=== PATIENT | male | born 1960 | race Caucasian/White ===

== ENCOUNTER 2023-01-14 11:55 | Inpatient (IN) | payer MEDICAID ==
[2023-01-14] VITALS (17 sets, daily range): BP systolic 105–167; BP diastolic 55–83
[~2023-01-14] VITALS: Ht 188 cm; Wt 91.9 kg
--- NOTE | 2023-01-14 12:09 | NUR ---
1155 BROUGHT IN TO ROOM 5 PER EMS WITH CARDIAC ARREST AT URGENT [facility]ARE AROUND 1110 TODAY. PATIENT WAS TREATED ON SCENE WITH 2 SHOCKS, 2 DOSES EPI, AND 300 MG AMIODARONE. CPR WAS INITIATED UNTIL PATIENT RETURNED TO [facility]. IGEL INSERTED AND BVM TO ER. 1202 ATROPINE 1 MG GIVEN IV. 1206 ETOMIDATE 20 MG GIVEN IV. 1207 INTUBATION WITH #8 ET TUBE. PLACED ON VENT AT TV 450, RR 20, FIO2 100%
[2023-01-14] MEDS ORDERED: LidoCAINE 2% Topical Jelly 11mL syringe TOP ONE ×2 (12:10→13:00)
[2023-01-14] MEDS ORDERED: midazolam 100mg in NS 100ml 100 ML IV PRN ×2 (12:15→12:32)
[2023-01-14] MEDS ORDERED: midazolam 1 mg/ML 2ml injection IV PRN (12:15)
--- NOTE | 2023-01-14 12:30 | NUR ---
[employer] [employer] in EDM - 01/14/23 at 1253 by JENNIFER TC FROM PATIENT'S SISTER AND INFORMED OF PATIENT AT THE ER AT [facility]. SISTER, MIGUEL, IS ON HER WAY HERE.
--- NOTE | 2023-01-14 12:30 | NUR ---
TC TO SISTER, MIGUEL, AFTER RETRIEVING PHONE NUMBER FROM PATIENT'S CELL PHONE. SISTER WAS INFORMED OF PATIENT BEING BROUGHT HERE FOR CARE. SISTER IS ON THE WAY HERE.
[2023-01-14] MEDS: fentaNYL/PF 50MCG/1 ML 2ML syringe IV PRN ×2 (12:33→12:42)
--- NOTE | 2023-01-14 12:33 | NUR ---
CALL TO [facility] IN CLINIC PER [facility] OF MARCH2016 NKDA, HX HTN, SMOKER, ETOH, SEP 2019 LUNG NODULE. ONLY MED ON FILE LISINOPRIL 10MG QD. NO EMERGENCY CONTACT ON FILE. INSURANCE AND DEMOGRAPHICS PROVIDED. STATED THEY CALL SOMEONE FROM HIS HOME TO NOTIFY. LIZETH AND NOTIFIED.
[2023-01-14 12:35] LABS: ABG BASE EXCESS -18.5 mmol/L (-2.0-2.0); ABG OXYGEN SATURATION 98.7 % (94-97); ABG PCO2 (T) 31.6 mmHg (35.0-48.0); ABG PO2 (T) 216.5 mmHg (75.0-100.0); ALLEN'S TEST POSITIVE; FCOHb 2.5 % (0.0-3.9); FMetHb 0.4 % (0.0-1.5); FO2Hb 95.8 % (94-97); PATIENT TEMPERATURE 36.1; PEEP 5 cm H2O; RESPIRATORY RATE 20 b/min; TIDAL VOLUME 450 mL; TOTAL HEMOGLOBIN 11.6 G/dl (14.0-17.9)
[2023-01-14] MEDS ORDERED: FENTANYL-0.9 % NACL/PF 100 ML IV PRN ×2 (12:35→13:00)
[2023-01-14 12:48] LABS: BASOPHILS # (AUTO) 0.1 X10'3 (0-0.2); BASOPHILS % (AUTO) 0.9 % (0-1); EOSINOPHILS # (AUTO) 0.4 X10'3 (0-0.9); EOSINOPHILS % (AUTO) 3.8 % (0-6); HEMATOCRIT 36.3 % (42.0-52.0); HEMOGLOBIN 11.1 g/dl (14.0-17.9); LYMPHOCYTES # (AUTO) 3.4 X10'3 (1.1-4.8); LYMPHOCYTES % (AUTO) 30.3 % (21-51); MEAN CORPUSCULAR HEMOGLOBIN 31.4 PG (27.0-31.0); MEAN CORPUSCULAR HGB CONC 30.6 g/dL (33.0-36.5); MEAN CORPUSCULAR VOLUME 102.5 FL (78-98); MONOCYTES # (AUTO) 0.6 X10'3 (0-0.9); MONOCYTES % (AUTO) 5.2 % (2-12); NEUTROPHILS # (AUTO) 6.7 X10'3 (1.8-7.7); NEUTROPHILS % (AUTO) 59.8 % (42-75); PLATELET COUNT 228 X10'3 (140-440); RED BLOOD COUNT 3.54 X10'6 (4.70-6.10); RED CELL DISTRIBUTION WIDTH 17.2 % (11.5-14.5); WHITE BLOOD COUNT 11.3 X10'3 (4.5-11.0)
[2023-01-14 12:58] LABS: ALANINE AMINOTRANSFERASE 45 U/L (12-78); ALBUMIN 2.6 G/DL (3.4-5.0); ALBUMIN/GLOBULIN RATIO 0.8 (1.1-1.5); ALKALINE PHOSPHATASE 94 IU/L (46-116); ANION GAP 20 (8-16); ASPARTATE AMINO TRANSFERASE 42 U/L (10-37); BILIRUBIN,TOTAL 0.4 MG/DL (0.1-1.0); BLOOD UREA NITROGEN 33 MG/DL (7-18); CALCIUM 8.2 MG/DL (8.5-10.1); CHLORIDE 111 MMOL/L (99-107); GLUCOSE 250 MG/DL (70-104); MAGNESIUM 2.4 MG/DL (1.5-2.4); POTASSIUM 3.8 MMOL/L (3.5-5.1); SODIUM 144 MMOL/L (135-145); TOTAL PROTEIN 5.7 G/DL (6.4-8.2); eGFR 31 ML/MIN
[2023-01-14] MEDS ORDERED: acetaminophen 325mg tablet PO PRN ×2 (13:00)
[2023-01-14] MEDS ORDERED: propofol 1000mg/100ml bottle 100 ML IV SCH (13:00)
[2023-01-14] MEDS ORDERED: magnesium hydroxide 30ml (MOM) UD suspension PO PRN (13:00)
[2023-01-14] MEDS ORDERED: CISatracurium besylate inj. 100 MG in normal saline 100ml IV soln 90 ML IV PRN ×3 (13:00→15:00)
[2023-01-14] MEDS ORDERED: Insulin Reg/NS 100units/100mL 100 ML IV SCH (13:00)
[2023-01-14] MEDS ORDERED: ondansetron/PF 4mg/2ml inj IV PRN (13:00)
[2023-01-14] MEDS ORDERED: albuterol 2.5 MG/3 ML nebule NEB PRN (13:00)
[2023-01-14] MEDS: propofol 1000mg/100ml bottle 100 ML IV SCH ×2 (13:01→20:56)
[2023-01-14 13:02] LABS: TOTAL CARBON DIOXIDE 13.1 MMOL/L (24-32)
[2023-01-14] MEDS: FENTANYL-0.9 % NACL/PF 100 ML IV SCH ×2 (13:02→20:43)
[2023-01-14 13:09] LABS: CLARITY,URINE SLIGHTLY CLOUDY (Clear); COLOR,URINE YELLOW (Yellow); GLUCOSE, URINE NEGATIVE (Neg); KETONES,URINE NEGATIVE (Neg); LEUKOCYTE ESTERASE ,URINE NEGATIVE (Neg); NITRITES, URINE NEGATIVE (Neg); OCCULT BLOOD,URINE SMALL (Neg); PROTEIN,URINE 100 mg/dl (Neg)
--- NOTE | 2023-01-14 13:10 | NUR ---
[facility] in [facility] - 01/14/23 at 1335 by EROS COOLING MEASURES INITIATED
--- NOTE | 2023-01-14 13:10 | NUR ---
COOLING MEASURES INITIATED
[2023-01-14 13:25] LABS: UA COLLECTION TYPE STRAIGHT CATH
[2023-01-14 13:28] LABS: ETHANOL < 0.010 GM/DL (0.0-0.010); TRIGLYCERIDES 85 MG/DL (20-135)
[2023-01-14 13:31] LABS: BACTERIA,URINE 2+ /HPF (Neg); CELLULAR CAST 0-4 /LPF (NEGATIVE); SQUAMOUS EPITHELIAL CELL,UR FEW /LPF (FEW); TRANSITIONAL EPI CELLS,URINE FEW /HPF; WBC CLUMPS,URINE FEW /HPF (NEGATIVE)
[2023-01-14 13:32] LABS: SPERM MODERATE /HPF (NEGATIVE)
[2023-01-14 13:40] LABS: URINE AMPHETAMINE SCREEN NEGATIVE (Neg); URINE BARBITUATE SCREEN NEGATIVE (Neg); URINE BENZODIAZEPINES SCREEN NEGATIVE (Neg); URINE CANNABINOID SCREEN NEGATIVE (Neg); URINE COCAINE SCREEN NEGATIVE (Neg); URINE METHADONE SCREEN NEGATIVE (Neg); URINE OPIATE SCREEN NEGATIVE (Neg); URINE PHENCYCLIDINE SCREEN NEGATIVE (Neg)
[2023-01-14] MEDS ORDERED: PED IV ONE (13:45)
[2023-01-14] MEDS ORDERED: DOPamine 400mg/D5W 250ml 250 ML IV SCH (13:45)
[2023-01-14] MEDS ORDERED: NORMAL SALINE IV ONE ×2 (13:45→13:55)
[2023-01-14] MEDS ORDERED: SODIUM BICARB IV ONE (13:45)
[2023-01-14] MEDS ORDERED: iohexol 350MG/ML 100ml bottle IV ONE (13:46)
[2023-01-14] MEDS ORDERED: SODIUM BICARBONATE IV ONE (13:55)
[2023-01-14] MEDS ORDERED: vancomycin/NS 1 GM ADD-VANTAGE 250 ML IV SCH (14:00)
--- NOTE | 2023-01-14 14:00 | NUR ---
Received telephone report from ED nurse TAMIA Duff
[2023-01-14] MEDS ORDERED: sodium bicarbonate (8.4%) 1 mEq/ml syringe IV ONE ×2 (14:15→15:05)
--- NOTE | 2023-01-14 14:40 | NUR ---
Pt arrived from ED monitored, intubated, and transcutaneously paced at 80 bpm via gurney. TTM started.
[2023-01-14] MEDS ORDERED: LISI10TA27 PO (14:47)
--- NOTE | 2023-01-14 15:10 | NUR ---
Pacer rate reduced t0 60 bpm by Marbella Jay NP.
--- NOTE | 2023-01-14 15:45 | NUR ---
Right quad lumen IJ placed by DR Ruvalcaba
--- NOTE | 2023-01-14 15:50 | NUR ---
Right radial art line placed by Marbella Jay, [employer]
--- NOTE | 2023-01-14 16:00 | NUR ---
Received telephone report from NAIN Duff RN Addendum: 01/14/23 at 1835 by Davian Hawkins RN This happened at 1400 hrs
[2023-01-14 16:14] LABS: ABG BASE EXCESS -13.4 mmol/L (-2.0-2.0); ABG HCO3 13.3 mmol/L (22.0-26.0); ABG PCO2 (T) 30.8 mmHg (35.0-48.0); ABG PO2 (T) 243.2 mmHg (75.0-100.0); FMetHb 0.5 % (0.0-1.5); FO2Hb 98.5 % (94-97); PATIENT TEMPERATURE 34.9; PEEP 5 cm H2O; RESPIRATORY RATE 16 b/min; TIDAL VOLUME 450 mL; TOTAL HEMOGLOBIN 11.8 G/dl (14.0-17.9)
[2023-01-14] MEDS: CISatracurium besylate inj. 100 MG in normal saline 100ml IV soln 90 ML IV PRN (16:19)
--- NOTE | 2023-01-14 16:40 | NUR ---
Pt arrived from ED monitored, intubated, and transcutaneously paced at 80 bpm via TTM started. Addendum: 01/14/23 at 1834 by Davian Hawkins RN Pt arrived at 1440 hrs
[2023-01-14] MEDS: SODIUM BICARB 150mEq/D5W 1L 1,000 ML IV SCH ×3 (16:51→23:22)
[2023-01-14] MEDS: piperacillin/tazo 3.375gm/50ml 50 ML IV SCH (16:51)
--- NOTE | 2023-01-14 17:30 | NUR ---
Pt out to lab director for transvenous pacer placement. Dr Wild attempt to call pt's sister Linda for consent and was unable to reach her.
[2023-01-14] MEDS ORDERED: heparin 1,000 UNITS/NS 500ml 500 ML ONE (17:47)
[2023-01-14] MEDS ORDERED: LIDOcaine 1% (10mg/ml)w/preservative inj. 20ml MDV ONE (17:47)
[2023-01-14] MEDS: amiodarone/D5 360MG/200ML BAG 200 ML IV SCH ×2 (18:05→18:52)
--- NOTE | 2023-01-14 18:30 | NUR ---
Problems reprioritized. Patient report given, questions answered & plan of care reviewed with TAMIA Combs.
[2023-01-14] MEDS: Insulin Reg/NS 100units/100mL 100 ML IV SCH ×2 (18:53→21:43)
[2023-01-14] MEDS: insulin Lispro (HumaLOG) vial - multi-dose SQ SCH ×2 (18:53→21:47)
[2023-01-14] MEDS: normal saline 1000ml 1,000 ML IV SCH ×2 (18:53→21:18)
[2023-01-14] MEDS: mineral oil/petrolatum ophthal oint EACHEYE SCH ×2 (18:54→20:00)
[2023-01-14] MEDS ORDERED: DOBUTamine-DoBUTrex 500mg/D5W 250 ML IV SCH (19:10)
[2023-01-14 19:49] LABS: BASOPHILS % (AUTO) 0.3 % (0-1); EOSINOPHILS % (AUTO) 0.1 % (0-6); HEMATOCRIT 34.5 % (42.0-52.0); HEMOGLOBIN 11.3 g/dl (14.0-17.9); LYMPHOCYTES % (AUTO) 6.5 % (21-51); MEAN CORPUSCULAR HEMOGLOBIN 31.6 PG (27.0-31.0); MEAN CORPUSCULAR HGB CONC 32.6 g/dL (33.0-36.5); MEAN CORPUSCULAR VOLUME 96.9 FL (78-98); MEAN PLATELET VOLUME 9.6 FL (7.4-10.4); MONOCYTES % (AUTO) 6.4 % (2-12); NEUTROPHILS # (AUTO) 13.3 X10'3 (1.8-7.7); NEUTROPHILS % (AUTO) 86.7 % (42-75); PLATELET COUNT 217 X10'3 (140-440); RED BLOOD COUNT 3.56 X10'6 (4.70-6.10); RED CELL DISTRIBUTION WIDTH 15.8 % (11.5-14.5); WHITE BLOOD COUNT 15.4 X10'3 (4.5-11.0)
[2023-01-14 20:01] LABS: APTT 26 SECONDS (22-32)
[2023-01-14 20:02] LABS: ALANINE AMINOTRANSFERASE 54 U/L (12-78); ALBUMIN 2.8 G/DL (3.4-5.0); ALBUMIN/GLOBULIN RATIO 0.9 (1.1-1.5); ALKALINE PHOSPHATASE 107 IU/L (46-116); ANION GAP 12 (8-16); ASPARTATE AMINO TRANSFERASE 56 U/L (10-37); BILIRUBIN,TOTAL 0.6 MG/DL (0.1-1.0); BLOOD UREA NITROGEN 34 MG/DL (7-18); CALCIUM 7.6 MG/DL (8.5-10.1); CHLORIDE 111 MMOL/L (99-107); CREATININE 1.62 MG/DL (0.60-1.10); GLUCOSE 267 MG/DL (70-104); PHOSPHORUS 4.3 MG/DL (2.3-4.5); POTASSIUM 3.7 MMOL/L (3.5-5.1); SODIUM 145 MMOL/L (135-145); TOTAL CARBON DIOXIDE 21.7 MMOL/L (24-32); eGFR 44 ML/MIN
[2023-01-14] MEDS: DOBUTamine-DoBUTrex 500mg/D5W 250 ML IV SCH (20:46)
[2023-01-14 21:07] LABS: ABG BASE EXCESS -9.6 mmol/L (-2.0-2.0); ABG OXYGEN SATURATION 91.9 % (94-97); ABG PCO2 (T) 28.5 mmHg (35.0-48.0); ABG PO2 (T) 58.2 mmHg (75.0-100.0); FCOHb 0.3 % (0.0-3.9); FMetHb 0.4 % (0.0-1.5); FO2Hb 91.3 % (94-97); PEEP 5 cm H2O; RESPIRATORY RATE 16 b/min; TIDAL VOLUME 450 mL; TOTAL HEMOGLOBIN 10.4 G/dl (14.0-17.9)
--- NOTE | 2023-01-14 23:12 | NUR ---
Arctic sun not working correctly and keeping pt below parameters. Warming patient with bear hugger to a more recommended temp.
[2023-01-15] VITALS (34 sets, daily range): BP systolic 90–132; BP diastolic 46–72
[2023-01-15] MEDS: amiodarone/D5 360MG/200ML BAG 200 ML IV SCH (00:05)
[2023-01-15] MEDS: piperacillin/tazo 3.375gm/50ml 50 ML IV SCH ×3 (00:52→16:48)
[2023-01-15] MEDS: mineral oil/petrolatum ophthal oint EACHEYE SCH ×6 (00:52→20:07)
--- NOTE | 2023-01-15 01:22 | NUR ---
Pacer intermittently pacing. Patients HR dropping into the 30's at times before recovering slowly to set rate of 80. CXR was obtained and Dr. Jacinto notified.
[2023-01-15 02:28] LABS: BASOPHILS % (AUTO) 0.3 % (0-1); EOSINOPHILS % (AUTO) 0.2 % (0-6); HEMATOCRIT 29.3 % (42.0-52.0); HEMOGLOBIN 9.6 g/dl (14.0-17.9); LYMPHOCYTES # (AUTO) 0.9 X10'3 (1.1-4.8); LYMPHOCYTES % (AUTO) 10.5 % (21-51); MEAN CORPUSCULAR HEMOGLOBIN 31.6 PG (27.0-31.0); MEAN CORPUSCULAR HGB CONC 32.8 g/dL (33.0-36.5); MEAN CORPUSCULAR VOLUME 96.3 FL (78-98); MEAN PLATELET VOLUME 9.5 FL (7.4-10.4); MONOCYTES # (AUTO) 0.5 X10'3 (0-0.9); MONOCYTES % (AUTO) 5.8 % (2-12); NEUTROPHILS # (AUTO) 7.3 X10'3 (1.8-7.7); NEUTROPHILS % (AUTO) 83.2 % (42-75); PLATELET COUNT 166 X10'3 (140-440); RED BLOOD COUNT 3.04 X10'6 (4.70-6.10); RED CELL DISTRIBUTION WIDTH 15.6 % (11.5-14.5); WHITE BLOOD COUNT 8.8 X10'3 (4.5-11.0)
[2023-01-15 02:35] LABS: APTT 28 SECONDS (22-32)
[2023-01-15 02:38] LABS: ALANINE AMINOTRANSFERASE 44 U/L (12-78); ALBUMIN 2.2 G/DL (3.4-5.0); ALBUMIN/GLOBULIN RATIO 0.9 (1.1-1.5); ALKALINE PHOSPHATASE 83 IU/L (46-116); ANION GAP 10 (8-16); ASPARTATE AMINO TRANSFERASE 39 U/L (10-37); BILIRUBIN,TOTAL 0.3 MG/DL (0.1-1.0); BLOOD UREA NITROGEN 28 MG/DL (7-18); CALCIUM 7.2 MG/DL (8.5-10.1); CHLORIDE 113 MMOL/L (99-107); CREATININE 1.27 MG/DL (0.60-1.10); GLUCOSE 143 MG/DL (70-104); MAGNESIUM 1.7 MG/DL (1.5-2.4); PHOSPHORUS 3.5 MG/DL (2.3-4.5); SODIUM 148 MMOL/L (135-145); TOTAL PROTEIN 4.7 G/DL (6.4-8.2); TRIGLYCERIDES 94 MG/DL (20-135); eGFR 58 ML/MIN
[2023-01-15 02:46] LABS: POTASSIUM 2.9 MMOL/L (3.5-5.1)
[2023-01-15] MEDS: CISatracurium besylate inj. 100 MG in normal saline 100ml IV soln 90 ML IV PRN ×3 (02:46→18:44)
[2023-01-15] MEDS ORDERED: potassium Cl 20 mEq SR tablet PO PRN ×2 (02:55)
[2023-01-15] MEDS: potassium Cl 40MEQ/270ML bag 270 ML IV PRN ×3 (03:19→13:25)
[2023-01-15 03:55] LABS: ABG HCO3 22.5 mmol/L (22.0-26.0); ABG OXYGEN SATURATION 96.6 % (94-97); ABG PCO2 (T) 35.4 mmHg (35.0-48.0); ABG PO2 (T) 81.8 mmHg (75.0-100.0); FCOHb 0.3 % (0.0-3.9); FMetHb 0.4 % (0.0-1.5); FO2Hb 95.9 % (94-97); PATIENT TEMPERATURE 33.3; PEEP 5 cm H2O; RESPIRATORY RATE 16 b/min; TIDAL VOLUME 450 mL; TOTAL HEMOGLOBIN 9.7 G/dl (14.0-17.9)
[2023-01-15] MEDS: normal saline 1000ml 1,000 ML IV SCH (05:00)
[2023-01-15] MEDS: propofol 1000mg/100ml bottle 100 ML IV SCH ×3 (05:39→20:27)
[2023-01-15] MEDS: SODIUM BICARB 150mEq/D5W 1L 1,000 ML IV SCH (06:12)
--- NOTE | 2023-01-15 07:54 | NUR ---
Nimbex held at 0645 hrs due to lack of response from TOF testing. Pt is now blinking eyes. BIS 91. No shivering.
[2023-01-15] MEDS: K and/or MAG REPLACEMENT MC SCH (08:00)
[2023-01-15] MEDS: vancomycin/NS 1 GM ADD-VANTAGE 250 ML IV SCH ×2 (08:19→20:06)
[2023-01-15] MEDS ORDERED: furosemide 10 MG/1 ML 10ml inj IV ONE (08:35)
[2023-01-15] MEDS: FENTANYL-0.9 % NACL/PF 100 ML IV SCH ×2 (08:55→21:49)
[2023-01-15] MEDS: insulin Lispro (HumaLOG) vial - multi-dose SQ SCH ×3 (09:00→18:00)
[2023-01-15 09:19] LABS: ABG HCO3 24.1 mmol/L (22.0-26.0); ABG OXYGEN SATURATION 97.1 % (94-97); ABG PCO2 (T) 47.4 mmHg (35.0-48.0); ABG PO2 (T) 97.8 mmHg (75.0-100.0); FCOHb 0.3 % (0.0-3.9); FMetHb 0.4 % (0.0-1.5); FO2Hb 96.4 % (94-97); PATIENT TEMPERATURE 34.6; PEEP 5 cm H2O; RESPIRATORY RATE 16 b/min; TIDAL VOLUME 450 mL; TOTAL HEMOGLOBIN 10.7 G/dl (14.0-17.9)
[2023-01-15] MEDS: dextrose 50%-water 50ml dispensing syringe IV PRN ×3 (10:10→18:20)
[2023-01-15] MEDS ORDERED: acetaminophen 325mg/10.15ml oral unit dose solution OGT PRN ×2 (10:37)
[2023-01-15] MEDS ORDERED: magnesium hydroxide 30ml (MOM) UD suspension OGT PRN (10:38)
[2023-01-15] MEDS ORDERED: POTASSIUM BICARB 20meq eff tab 20 MEQ TABLET.EFF OGT PRN ×2 (10:39)
--- NOTE | 2023-01-15 10:57 | NUR ---
Initial: Pt admit s/p code blue with third degree heart block, acute respiratory failure, and ROSALVA with hypokalemia. Per MD at [facility] CXR shows pulmonary edema and MD wants to minimize fluids at this time. Pt currently intubated, paralyzed, on hypothermic protocol, and sedated with Propofol visualized at bedside to be running at 13.5 mL/hr providing 356 kcal/day. Pt started on D50 at 10 mL/hr (408 kcal/day) for management of hypoglycemia. Pt also started on routine Thiamine, Folic acid, MVM with Iron, and Vitamin B12 for EtOH hx. No plans to initiate nutrition at this time in view of hypothermia. TF recs below for once pt normothermic and to receive nutrition support if expected prolonged intubation. OGT placement pending at this time. Noted pt with a low Shiva of 11, per EMR no edema and skin is intact. Will continue to follow closely. Recommendations: 1) IF TF and Propofol at 13.5 mL/hr (356 kcal/day), continuous Pivot 1.5 with 70 mL/hr goal rate (may go down to 60 mL/hr for less volume if needed) 2) IF TF, consult with physician regarding water flushes; pt hypernatremic but physician wants minimal fluid intake at this time; monitor serum Na 3) IF TF, prealbumin q Friday/; daily scaled weights 4) Continue routine Thiamine, Folic acid, MVM with iron, and Vitamin B12 given EtOH hx with elevated MCV on admit 5) Routine bowel care Addendum: 01/15/23 at [address] Amended: Links added.
[2023-01-15 11:02] LABS: ALBUMIN 2.1 G/DL (3.4-5.0); ANION GAP 10 (8-16); BLOOD UREA NITROGEN 24 MG/DL (7-18); CALCIUM 6.9 MG/DL (8.5-10.1); CHLORIDE 112 MMOL/L (99-107); GLUCOSE 109 MG/DL (70-104); MAGNESIUM 1.5 MG/DL (1.5-2.4); PHOSPHORUS 4.1 MG/DL (2.3-4.5); POTASSIUM 3.2 MMOL/L (3.5-5.1); SODIUM 148 MMOL/L (135-145); TOTAL CARBON DIOXIDE 26.2 MMOL/L (24-32); eGFR 62 ML/MIN
[2023-01-15] MEDS: DEXTROSE IV SCH ×4 (12:12→16:49)
[2023-01-15] MEDS: WATER IV SCH ×4 (12:12→16:49)
[2023-01-15] MEDS: WATER FOR INJECTION IV SCH ×4 (12:12→16:49)
[2023-01-15] MEDS: STERILE IV SCH ×4 (12:12→16:49)
[2023-01-15] MEDS: DOBUTamine-DoBUTrex 500mg/D5W 250 ML IV SCH (12:49)
[2023-01-15] MEDS ORDERED: mineral oil/petrolatum ophthal oint EACHEYE SCH (14:00)
[2023-01-15 16:24] LABS: ANION GAP 8 (8-16); BLOOD UREA NITROGEN 21 MG/DL (7-18); BUN/CREATININE RATIO 18.4 (10.0-20.0); CALCIUM 6.9 MG/DL (8.5-10.1); CHLORIDE 113 MMOL/L (99-107); CREATININE 1.14 MG/DL (0.60-1.10); GLUCOSE 89 MG/DL (70-104); MAGNESIUM 1.4 MG/DL (1.5-2.4); PHOSPHORUS 3.2 MG/DL (2.3-4.5); SODIUM 147 MMOL/L (135-145); TOTAL CARBON DIOXIDE 26.5 MMOL/L (24-32); eGFR 65 ML/MIN
--- NOTE | 2023-01-15 16:30 | NUR ---
Dr Junito nath.
[2023-01-15] MEDS: heparin, porcine 5000 units/ml vial SQ SCH (16:48)
[2023-01-15 17:00] LABS: ABG BASE EXCESS -1.3 mmol/L (-2.0-2.0); ABG HCO3 21.8 mmol/L (22.0-26.0); ABG OXYGEN SATURATION 94.3 % (94-97); ABG PCO2 (T) 26.5 mmHg (35.0-48.0); FCOHb 0.3 % (0.0-3.9); FMetHb 0.4 % (0.0-1.5); FO2Hb 93.6 % (94-97); PATIENT TEMPERATURE 33.6; PEEP 5 cm H2O; RESPIRATORY RATE 20 b/min; TIDAL VOLUME 450 mL; TOTAL HEMOGLOBIN 10.1 G/dl (14.0-17.9)
--- NOTE | 2023-01-15 17:40 | NUR ---
Pt becoming hypotensive. BP 75/50 (58), CVP 15, HR 80 V paced. Norepinephrine gtt ordered.
[2023-01-15] MEDS ORDERED: NORepinephrine 8mg/ 250ml NS 250 ML IV ONE (17:45)
[2023-01-15] MEDS: NORepinephrine 8mg/ 250ml NS 250 ML IV SCH (18:21)
--- NOTE | 2023-01-15 18:25 | NUR ---
Patient in room CICU 2009. I have received report from Jaleel CANTRELL and had the opportunity to ask questions and assume patient care. Pt shivering, Nimbex reordered from pharmacy, Levo being started. 1/2amp D50 for low blood sugar.
--- NOTE | 2023-01-15 18:30 | NUR ---
Problems reprioritized. Patient report given, questions answered & plan of care reviewed with TAMIA Flores.
[2023-01-15 22:38] LABS: ANION GAP 8 (8-16); BLOOD UREA NITROGEN 21 MG/DL (7-18); BUN/CREATININE RATIO 16.5 (10.0-20.0); CHLORIDE 112 MMOL/L (99-107); CREATININE 1.27 MG/DL (0.60-1.10); GLUCOSE 104 MG/DL (70-104); MAGNESIUM 1.3 MG/DL (1.5-2.4); PHOSPHORUS 3.8 MG/DL (2.3-4.5); POTASSIUM 3.8 MMOL/L (3.5-5.1); SODIUM 146 MMOL/L (135-145); TOTAL CARBON DIOXIDE 25.8 MMOL/L (24-32); eGFR 58 ML/MIN
--- NOTE | 2023-01-15 23:35 | NUR ---
Rounds with Faye, no new orders at this time. Following labs with rewarming. Titrating Levophed for BP as needed.
[2023-01-15] MEDS ORDERED: magnesium 2GM in 50ml NS 50 ML IV ONE (23:40)
[2023-01-15 23:47] LABS: ABG BASE EXCESS -0.2 mmol/L (-2.0-2.0); ABG HCO3 24.7 mmol/L (22.0-26.0); ABG OXYGEN SATURATION 94.3 % (94-97); ABG PCO2 (T) 38.2 mmHg (35.0-48.0); ABG PO2 (T) 66.9 mmHg (75.0-100.0); FCOHb 0.3 % (0.0-3.9); FMetHb 0.4 % (0.0-1.5); FO2Hb 93.6 % (94-97); PATIENT TEMPERATURE 35.2; PEEP 5 cm H2O; RESPIRATORY RATE 20 b/min; TIDAL VOLUME 450 mL; TOTAL HEMOGLOBIN 11.1 G/dl (14.0-17.9)
[2023-01-16] VITALS (35 sets, daily range): BP systolic 83–133; BP diastolic 41–85
[2023-01-16] MEDS: piperacillin/tazo 3.375gm/50ml 50 ML IV SCH ×3 (00:16→16:09)
[2023-01-16] MEDS: heparin, porcine 5000 units/ml vial SQ SCH ×3 (00:18→16:09)
[2023-01-16] MEDS: mineral oil/petrolatum ophthal oint EACHEYE SCH ×6 (00:18→20:35)
[2023-01-16] MEDS: propofol 1000mg/100ml bottle 100 ML IV SCH ×5 (01:38→19:27)
[2023-01-16] MEDS: CISatracurium besylate inj. 100 MG in normal saline 100ml IV soln 90 ML IV PRN (01:44)
[2023-01-16] MEDS: FENTANYL-0.9 % NACL/PF 100 ML IV SCH ×3 (04:14→18:10)
[2023-01-16] MEDS: NORepinephrine 8mg/ 250ml NS 250 ML IV SCH ×2 (04:15→13:52)
[2023-01-16 04:35] LABS: BASOPHILS # (AUTO) 0.1 X10'3 (0-0.2); BASOPHILS % (AUTO) 0.6 % (0-1); EOSINOPHILS # (AUTO) 0.6 X10'3 (0-0.9); HEMATOCRIT 31.4 % (42.0-52.0); HEMOGLOBIN 10.4 g/dl (14.0-17.9); LYMPHOCYTES % (AUTO) 11.8 % (21-51); MEAN CORPUSCULAR HEMOGLOBIN 31.8 PG (27.0-31.0); MEAN CORPUSCULAR VOLUME 96.3 FL (78-98); MONOCYTES # (AUTO) 0.6 X10'3 (0-0.9); MONOCYTES % (AUTO) 7.4 % (2-12); NEUTROPHILS % (AUTO) 73.2 % (42-75); PLATELET COUNT 180 X10'3 (140-440); RED BLOOD COUNT 3.26 X10'6 (4.70-6.10); RED CELL DISTRIBUTION WIDTH 15.7 % (11.5-14.5); WHITE BLOOD COUNT 8.1 X10'3 (4.5-11.0)
[2023-01-16] MEDS: DOBUTamine-DoBUTrex 500mg/D5W 250 ML IV SCH ×2 (04:39→07:50)
[2023-01-16 04:46] LABS: APTT 29 SECONDS (22-32)
[2023-01-16 04:50] LABS: ALANINE AMINOTRANSFERASE 38 U/L (12-78); ALBUMIN 2.1 G/DL (3.4-5.0); ALBUMIN/GLOBULIN RATIO 0.7 (1.1-1.5); ALKALINE PHOSPHATASE 82 IU/L (46-116); ANION GAP 9 (8-16); ASPARTATE AMINO TRANSFERASE 25 U/L (10-37); BILIRUBIN,TOTAL 0.4 MG/DL (0.1-1.0); BLOOD UREA NITROGEN 21 MG/DL (7-18); CALCIUM 7.5 MG/DL (8.5-10.1); CHLORIDE 111 MMOL/L (99-107); GLUCOSE 99 MG/DL (70-104); PHOSPHORUS 4.6 MG/DL (2.3-4.5); POTASSIUM 4.2 MMOL/L (3.5-5.1); SODIUM 146 MMOL/L (135-145); TOTAL CARBON DIOXIDE 26.3 MMOL/L (24-32); eGFR 52 ML/MIN
[2023-01-16 05:15] LABS: ABG BASE EXCESS -4.5 mmol/L (-2.0-2.0); ABG HCO3 20.4 mmol/L (22.0-26.0); ABG OXYGEN SATURATION 93.7 % (94-97); ABG PCO2 (T) 35.8 mmHg (35.0-48.0); ABG PO2 (T) 86.5 mmHg (75.0-100.0); ALLEN'S TEST POSITIVE; FCOHb 0.3 % (0.0-3.9); FMetHb 0.4 % (0.0-1.5); PATIENT TEMPERATURE 36.4; PEEP 5 cm H2O; RESPIRATORY RATE 16 b/min; TIDAL VOLUME 450 mL; TOTAL HEMOGLOBIN 11.2 G/dl (14.0-17.9)
[2023-01-16] MEDS: K and/or MAG REPLACEMENT MC SCH (07:42)
[2023-01-16] MEDS: vancomycin/NS 1 GM ADD-VANTAGE 250 ML IV SCH ×2 (07:49→20:35)
[2023-01-16] MEDS: pantoprazole 40MG/NS 100ML BAG 100 ML IV SCH (07:49)
[2023-01-16] MEDS: thiamine 100mg tablet OGT SCH (07:50)
[2023-01-16] MEDS: vitamin B comp w/Vit. C tab 1 TAB TABLET OGT SCH (07:50)
[2023-01-16] MEDS: MULTIVIT-MIN/FERROUS GLUCONATE 9 MG/15 ML LIQUID OGT SCH (07:50)
[2023-01-16] MEDS: folic acid 1mg tablet OGT SCH (07:50)
[2023-01-16] MEDS ORDERED: albumin (human) 25% 100ml IV 300 ML IV ONE (10:15)
[2023-01-16] MEDS: furosemide 20 MG/2 ML vial IV SCH ×3 (10:40→20:34)
--- NOTE | 2023-01-16 10:56 | NUR ---
TF consult: Pt remains intubated, now normothermic and no longer on paralytic. Propofol visualized at bedside to be running at 18 mL/hr providing 475 kcal/day, previous TF recs remain appropriate. MD requests no water flushes at this time. Pt with an OGT in place. D50 to be discontinued with initiation of TF per MD at [facility]. Will continue to follow closely and adjust recommendations as appropriate. Recommendations: 1) Given Propofol at 18 mL/hr (475 kcal/day), continuous Pivot 1.5 with 70 mL/hr goal rate to provide 1680 mL total volume/day, 2520 kcal, 158 g protein, and 1275 mL water 2) No additional water flushes per physician; pt hypernatremic but physician wants minimal fluid intake at this time; monitor serum Na 3) Monitor Propofol rate and need to adjust recs 4) Prealbumin q Friday/; daily scaled weights 5) Continue routine Thiamine, Folic acid, MVM with iron, and Vitamin B12 given EtOH hx with elevated MCV on admit 6) Routine bowel care Addendum: 01/16/23 at [address] Amended: Links added.
[2023-01-16] MEDS ORDERED: dextrose 50%-water 50ml dispensing syringe IV PRN (17:25)
[2023-01-16] MEDS ORDERED: rocuronium 10mg/ml inj IV ONE (17:55)
--- NOTE | 2023-01-16 18:15 | NUR ---
Patient in room CICU 2009. I have received report from Nasreen CANTRELL and had the opportunity to ask questions and assume patient care.
[2023-01-16] MEDS ORDERED: VANCOMYCIN LEVEL IV ONE (19:30)
[2023-01-16] MEDS: dextrose 50%-water 50ml dispensing syringe IV PRN (19:51)
[2023-01-16 20:15] LABS: ALBUMIN 2.9 G/DL (3.4-5.0); ANION GAP 10 (8-16); BLOOD UREA NITROGEN 17 MG/DL (7-18); BUN/CREATININE RATIO 11.7 (10.0-20.0); CALCIUM 7.6 MG/DL (8.5-10.1); CHLORIDE 110 MMOL/L (99-107); CREATININE 1.45 MG/DL (0.60-1.10); GLUCOSE 71 MG/DL (70-104); MAGNESIUM 1.7 MG/DL (1.5-2.4); PHOSPHORUS 5.3 MG/DL (2.3-4.5); SODIUM 146 MMOL/L (135-145); TOTAL CARBON DIOXIDE 25.9 MMOL/L (24-32); eGFR 49 ML/MIN
[2023-01-16 20:18] LABS: VANCOMYCIN,TROUGH 20.4 UG/ML (6.0-14.0)
[2023-01-17] VITALS (35 sets, daily range): BP systolic 95–128; BP diastolic 41–80
[2023-01-17] MEDS: piperacillin/tazo 3.375gm/50ml 50 ML IV SCH ×4 (00:11→23:54)
[2023-01-17] MEDS: mineral oil/petrolatum ophthal oint EACHEYE SCH ×6 (00:11→20:05)
[2023-01-17] MEDS: heparin, porcine 5000 units/ml vial SQ SCH ×3 (00:12→15:46)
[2023-01-17] MEDS: propofol 1000mg/100ml bottle 100 ML IV SCH ×4 (00:45→17:17)
[2023-01-17] MEDS: furosemide 20 MG/2 ML vial IV SCH ×4 (02:23→20:07)
[2023-01-17] MEDS: DOBUTamine-DoBUTrex 500mg/D5W 250 ML IV SCH ×2 (02:24→20:53)
[2023-01-17 02:41] LABS: BASOPHILS % (AUTO) 0.4 % (0-1); EOSINOPHILS # (AUTO) 0.5 X10'3 (0-0.9); EOSINOPHILS % (AUTO) 7.8 % (0-6); HEMATOCRIT 28.4 % (42.0-52.0); HEMOGLOBIN 9.3 g/dl (14.0-17.9); LYMPHOCYTES # (AUTO) 0.7 X10'3 (1.1-4.8); LYMPHOCYTES % (AUTO) 11.5 % (21-51); MEAN CORPUSCULAR HEMOGLOBIN 31.8 PG (27.0-31.0); MEAN CORPUSCULAR HGB CONC 32.7 g/dL (33.0-36.5); MEAN CORPUSCULAR VOLUME 97.3 FL (78-98); MEAN PLATELET VOLUME 9.3 FL (7.4-10.4); MONOCYTES # (AUTO) 0.5 X10'3 (0-0.9); MONOCYTES % (AUTO) 7.9 % (2-12); NEUTROPHILS # (AUTO) 4.5 X10'3 (1.8-7.7); NEUTROPHILS % (AUTO) 72.4 % (42-75); PLATELET COUNT 158 X10'3 (140-440); RED BLOOD COUNT 2.92 X10'6 (4.70-6.10); RED CELL DISTRIBUTION WIDTH 16.1 % (11.5-14.5); WHITE BLOOD COUNT 6.3 X10'3 (4.5-11.0)
[2023-01-17 02:49] LABS: APTT 30 SECONDS (22-32)
[2023-01-17 02:51] LABS: ALANINE AMINOTRANSFERASE 31 U/L (12-78); ALBUMIN 2.8 G/DL (3.4-5.0); ALBUMIN/GLOBULIN RATIO 1.2 (1.1-1.5); ALKALINE PHOSPHATASE 69 IU/L (46-116); ANION GAP 6 (8-16); ASPARTATE AMINO TRANSFERASE 20 U/L (10-37); BILIRUBIN,TOTAL 0.5 MG/DL (0.1-1.0); BLOOD UREA NITROGEN 18 MG/DL (7-18); BUN/CREATININE RATIO 11.4 (10.0-20.0); CALCIUM 7.7 MG/DL (8.5-10.1); CHLORIDE 111 MMOL/L (99-107); CREATININE 1.58 MG/DL (0.60-1.10); GLUCOSE 84 MG/DL (70-104); MAGNESIUM 1.6 MG/DL (1.5-2.4); PHOSPHORUS 5.8 MG/DL (2.3-4.5); POTASSIUM 4.4 MMOL/L (3.5-5.1); PREALBUMIN 13.9 MG/DL (19-36); SODIUM 144 MMOL/L (135-145); TOTAL CARBON DIOXIDE 26.7 MMOL/L (24-32); TOTAL PROTEIN 5.2 G/DL (6.4-8.2); TRIGLYCERIDES 122 MG/DL (20-135); eGFR 45 ML/MIN
[2023-01-17 03:22] LABS: ABG HCO3 26.8 mmol/L (22.0-26.0); ABG OXYGEN SATURATION 95.7 % (94-97); ABG PCO2 (T) 53.2 mmHg (35.0-48.0); ABG PO2 (T) 86.5 mmHg (75.0-100.0); ALLEN'S TEST POSITIVE; FCOHb 0.3 % (0.0-3.9); FMetHb 0.6 % (0.0-1.5); FO2Hb 94.8 % (94-97); PATIENT TEMPERATURE 36.6; PEEP 5 cm H2O; RESPIRATORY RATE 16 b/min; TIDAL VOLUME 450 mL; TOTAL HEMOGLOBIN 10.5 G/dl (14.0-17.9)
[2023-01-17] MEDS: dextrose 50%-water 50ml dispensing syringe IV PRN ×4 (04:23→23:50)
[2023-01-17] MEDS: normal saline 1000ml 1,000 ML IV SCH (05:00)
--- NOTE | 2023-01-17 06:15 | NUR ---
Problems reprioritized. Patient report given, questions answered & plan of care reviewed with Nasreen CANTRELL.
[2023-01-17 06:55] LABS: CREATINE KINASE 467 U/L (39-308)
[2023-01-17] MEDS: K and/or MAG REPLACEMENT MC SCH (07:12)
[2023-01-17] MEDS: acetaminophen 1,000mg/100ml IV 100 ML IV PRN ×3 (07:21→23:53)
[2023-01-17] MEDS: vancomycin/NS 1 GM ADD-VANTAGE 250 ML IV SCH (07:21)
[2023-01-17] MEDS: folic acid 1mg tablet OGT SCH (07:23)
[2023-01-17] MEDS: vitamin B comp w/Vit. C tab 1 TAB TABLET OGT SCH (07:23)
[2023-01-17] MEDS: MULTIVIT-MIN/FERROUS GLUCONATE 9 MG/15 ML LIQUID OGT SCH (07:23)
[2023-01-17] MEDS: thiamine 100mg tablet OGT SCH (07:23)
[2023-01-17] MEDS: albumin (human) 25% 100ml IV 100 ML IV SCH (07:23)
[2023-01-17] MEDS: pantoprazole 40MG/NS 100ML BAG 100 ML IV SCH (07:24)
[2023-01-17] MEDS: FENTANYL-0.9 % NACL/PF 100 ML IV SCH ×3 (08:12→23:59)
[2023-01-17] MEDS: levetiracetam inj 500 MG in normal saline 100ml IV soln 95 ML IV SCH ×2 (08:12→20:05)
[2023-01-17] MEDS: NORepinephrine 8mg/ 250ml NS 250 ML IV SCH ×2 (08:51→23:20)
--- NOTE | 2023-01-17 13:16 | NUR ---
Report given to Cuauhtemoc CANTRELL. Patient continues to open eyes spontaneously but does not track. Vision straight forward. + corneals. + Babinski bilat. No movement to extremities to noxious stimuli. Cont on Fentanyl & Propofol d/t breathing pattern. When sedation lightened, patient has very prolonged forced expiratory pattern with TV > 1000ml. Cont to have shivering type movements greater when stimulated. Appeared to decrease after IV Tylenol given for presumptive fever d/t water temp on Arctic Sun at 25 degrees to keep patient normothermic. Patient now in SR with 1st degree AV block. Transvenous pacer set at a backup rate of 60. Suctioned for thick creamy secretions. John TF well. Good UO with Lasix.
--- NOTE | 2023-01-17 18:18 | NUR ---
Problems reprioritized. Patient report given, questions answered & plan of care reviewed with Paloma CANTRELL.
[2023-01-17] MEDS: VANCOMYCIN 750MG IV in NS 250 ML IV SCH (20:07)
[2023-01-18] VITALS (34 sets, daily range): BP systolic 92–125; BP diastolic 42–63
[2023-01-18] MEDS: mineral oil/petrolatum ophthal oint EACHEYE SCH ×7 (00:08→23:12)
[2023-01-18] MEDS: heparin, porcine 5000 units/ml vial SQ SCH ×4 (00:08→23:14)
[2023-01-18] MEDS ORDERED: meperidine/PF 25mg/ml syringe IV ONE (00:25)
[2023-01-18] MEDS: propofol 1000mg/100ml bottle 100 ML IV SCH ×4 (01:24→22:16)
[2023-01-18] MEDS: dextrose 50%-water 250 ML IV SCH ×4 (02:31→22:15)
[2023-01-18] MEDS: furosemide 20 MG/2 ML vial IV SCH ×4 (02:33→20:11)
[2023-01-18 03:09] LABS: BASOPHILS % (AUTO) 0.6 % (0-1); EOSINOPHILS # (AUTO) 0.4 X10'3 (0-0.9); EOSINOPHILS % (AUTO) 9.9 % (0-6); HEMATOCRIT 27.5 % (42.0-52.0); HEMOGLOBIN 9.1 g/dl (14.0-17.9); LYMPHOCYTES # (AUTO) 0.4 X10'3 (1.1-4.8); LYMPHOCYTES % (AUTO) 9.9 % (21-51); MEAN CORPUSCULAR HEMOGLOBIN 31.9 PG (27.0-31.0); MEAN CORPUSCULAR HGB CONC 33.1 g/dL (33.0-36.5); MEAN CORPUSCULAR VOLUME 96.6 FL (78-98); MEAN PLATELET VOLUME 8.8 FL (7.4-10.4); MONOCYTES # (AUTO) 0.4 X10'3 (0-0.9); MONOCYTES % (AUTO) 8.6 % (2-12); PLATELET COUNT 140 X10'3 (140-440); RED BLOOD COUNT 2.85 X10'6 (4.70-6.10); RED CELL DISTRIBUTION WIDTH 15.8 % (11.5-14.5); WHITE BLOOD COUNT 4.2 X10'3 (4.5-11.0)
[2023-01-18 03:17] LABS: ABG BASE EXCESS 0.9 mmol/L (-2.0-2.0); ABG HCO3 27.5 mmol/L (22.0-26.0); ABG OXYGEN SATURATION 94.4 % (94-97); ABG PCO2 (T) 51.7 mmHg (35.0-48.0); ABG PO2 (T) 72.9 mmHg (75.0-100.0); ALLEN'S TEST POSITIVE; FCOHb 0.3 % (0.0-3.9); FMetHb 0.4 % (0.0-1.5); FO2Hb 93.7 % (94-97); PATIENT TEMPERATURE 36.1; PEEP 5 cm H2O; RESPIRATORY RATE 20 b/min; TIDAL VOLUME 450 mL; TOTAL HEMOGLOBIN 10.3 G/dl (14.0-17.9)
[2023-01-18 03:19] LABS: APTT 34 SECONDS (22-32)
[2023-01-18 03:26] LABS: ALANINE AMINOTRANSFERASE 28 U/L (12-78); ALBUMIN 2.5 G/DL (3.4-5.0); ALKALINE PHOSPHATASE 70 IU/L (46-116); ANION GAP 9 (8-16); ASPARTATE AMINO TRANSFERASE 25 U/L (10-37); BLOOD UREA NITROGEN 21 MG/DL (7-18); CALCIUM 7.8 MG/DL (8.5-10.1); CHLORIDE 107 MMOL/L (99-107); CREATINE KINASE 351 U/L (39-308); CREATININE 1.61 MG/DL (0.60-1.10); GLUCOSE 146 MG/DL (70-104); MAGNESIUM 1.5 MG/DL (1.5-2.4); PHOSPHORUS 4.9 MG/DL (2.3-4.5); POTASSIUM 3.6 MMOL/L (3.5-5.1); SODIUM 142 MMOL/L (135-145); TOTAL CARBON DIOXIDE 26.5 MMOL/L (24-32); TOTAL PROTEIN 5.1 G/DL (6.4-8.2); eGFR 44 ML/MIN
--- NOTE | 2023-01-18 04:32 | NUR ---
message left for [facility] to eval for chest wounds
[2023-01-18] MEDS: FENTANYL-0.9 % NACL/PF 100 ML IV SCH ×3 (05:04→19:22)
[2023-01-18] MEDS: levetiracetam inj 500 MG in normal saline 100ml IV soln 95 ML IV SCH ×2 (06:56→20:13)
[2023-01-18] MEDS: VANCOMYCIN 750MG IV in NS 250 ML IV SCH (06:58)
[2023-01-18] MEDS: pantoprazole 40MG/NS 100ML BAG 100 ML IV SCH (06:58)
[2023-01-18] MEDS: albumin (human) 25% 100ml IV 100 ML IV SCH (07:31)
[2023-01-18] MEDS: MULTIVIT-MIN/FERROUS GLUCONATE 9 MG/15 ML LIQUID OGT SCH (07:31)
[2023-01-18] MEDS: thiamine 100mg tablet OGT SCH (07:31)
[2023-01-18] MEDS: piperacillin/tazo 3.375gm/50ml 50 ML IV SCH (07:31)
[2023-01-18] MEDS: folic acid 1mg tablet OGT SCH (07:31)
[2023-01-18] MEDS: vitamin B comp w/Vit. C tab 1 TAB TABLET OGT SCH (07:31)
[2023-01-18 07:44] LABS: PLATELET ESTIMATE NORMAL; TOTAL CELLS COUNTED 100
[2023-01-18 07:45] LABS: HYPOCHROMASIA 1+; SCHISTOCYTES FEW
--- NOTE | 2023-01-18 08:00 | NUR ---
Tube feed residuals 700; stopped tube feed and disposed of contents. Will discuss with .
[2023-01-18] MEDS: acetaminophen 1,000mg/100ml IV 100 ML IV PRN ×2 (08:43→18:48)
--- NOTE | 2023-01-18 09:00 | NUR ---
Restarted tube feed per protocol at 70ml/h
[2023-01-18] MEDS: meperidine/PF 25mg/ml syringe IV PRN ×2 (09:16→18:49)
[2023-01-18] MEDS ORDERED: CefTRIAXone/D5W-Rocephin 1gm 50 ML IV ONE (09:25)
[2023-01-18] MEDS ORDERED: levoFLOXACIN-Levaquin 750MG/D5 150 ML IV STA (09:25)
--- NOTE | 2023-01-18 12:00 | NUR ---
400ml tube feed residual. Will stop and restart in 1 hour.
--- NOTE | 2023-01-18 13:19 | NUR ---
Reassessment: Pt remains intubated, now with poor tolerance to TF with GRV 700 mL this morning. Per verbal d/w RN TF was held for an hour and resumed at 0900, f/u GRV 400 mL. Noted pt only documented with a smear for a BM today which is the first documented BM since admit. RN states will implement bowel care. Propofol visualized at bedside to be running at 10.8 mL/hr providing 285 kcal/day and pt started on D50 at 25 mL/hr for management of hypoglycemia providing 1020 kcal/day. D/w RN recommendation to reduce TF goal rate to 45 mL/hr as to not overfeed on the vent. Will continue to follow closely and adjust recommendations as appropriate. Recommendations: 1) Given Propofol at 10.8 mL/hr (285 kcal/day) and D50 at 25 mL (1020 kcal/day), continuous Pivot 1.5 with 45 mL/hr goal rate to provide 1080 mL total volume/day, 1620 kcal, 1101 g protein, and 820 mL water 2) No additional water flushes per physician; pt hypernatremic but physician wants minimal fluid intake at this time; monitor serum Na 3) Monitor Propofol rate and need to adjust recs 4) Prealbumin q Friday/; daily scaled weights 5) Continue routine Thiamine, Folic acid, MVM with iron, and Vitamin B12 given EtOH hx with elevated MCV on admit 6) Routine bowel care Addendum: 01/18/23 at [address] Amended: Links added.
[2023-01-18] MEDS: NORepinephrine 8mg/ 250ml NS 250 ML IV SCH (13:31)
[2023-01-18] MEDS: DOBUTamine-DoBUTrex 500mg/D5W 250 ML IV SCH (13:32)
--- NOTE | 2023-01-18 13:37 | NUR ---
Restarted tube feed at 45ml/hour per [facility] [employer]. Will order scheduled Colace per
--- NOTE | 2023-01-18 18:14 | NUR ---
Problems reprioritized. Patient report given, questions answered & plan of care reviewed with Alisia CANTRLEL and Gia CANTRELL.
[2023-01-18] MEDS: docusate sodium 100mg/10ml UD cup OGT SCH (20:13)
[2023-01-19] VITALS (19 sets, daily range): BP systolic 94–179; BP diastolic 46–153
[2023-01-19] MEDS: FENTANYL-0.9 % NACL/PF 100 ML IV SCH ×2 (00:47→07:26)
[2023-01-19] MEDS: furosemide 20 MG/2 ML vial IV SCH ×3 (01:59→14:00)
[2023-01-19] MEDS: meperidine/PF 25mg/ml syringe IV PRN (01:59)
[2023-01-19 02:29] LABS: EOSINOPHILS # (AUTO) 0.7 X10'3 (0-0.9); HEMATOCRIT 27.3 % (42.0-52.0); LYMPHOCYTES # (AUTO) 0.6 X10'3 (1.1-4.8); MONOCYTES # (AUTO) 0.8 X10'3 (0-0.9); NEUTROPHILS # (AUTO) 1.2 X10'3 (1.8-7.7); RED CELL DISTRIBUTION WIDTH 15.8 % (11.5-14.5); WHITE BLOOD COUNT 3.3 X10'3 (4.5-11.0)
[2023-01-19 02:31] LABS: BASOPHILS % (AUTO) 0.6 % (0-1); EOSINOPHILS % (AUTO) 22.1 % (0-6); LYMPHOCYTES % (AUTO) 17.9 % (21-51); MEAN CORPUSCULAR HEMOGLOBIN 31.6 PG (27.0-31.0); MEAN CORPUSCULAR HGB CONC 32.9 g/dL (33.0-36.5); MEAN CORPUSCULAR VOLUME 95.8 FL (78-98); MEAN PLATELET VOLUME 8.7 FL (7.4-10.4); MONOCYTES % (AUTO) 22.9 % (2-12); NEUTROPHILS % (AUTO) 36.5 % (42-75); PLATELET COUNT 153 X10'3 (140-440); RED BLOOD COUNT 2.85 X10'6 (4.70-6.10)
[2023-01-19 02:39] LABS: APTT 35 SECONDS (22-32)
[2023-01-19 02:41] LABS: ALANINE AMINOTRANSFERASE 26 U/L (12-78); ALBUMIN 2.5 G/DL (3.4-5.0); ALBUMIN/GLOBULIN RATIO 0.9 (1.1-1.5); ALKALINE PHOSPHATASE 73 IU/L (46-116); ANION GAP 7 (8-16); ASPARTATE AMINO TRANSFERASE 28 U/L (10-37); BLOOD UREA NITROGEN 17 MG/DL (7-18); BUN/CREATININE RATIO 11.3 (10.0-20.0); CALCIUM 8.2 MG/DL (8.5-10.1); CHLORIDE 105 MMOL/L (99-107); CREATININE 1.51 MG/DL (0.60-1.10); GLUCOSE 93 MG/DL (70-104); MAGNESIUM 1.4 MG/DL (1.5-2.4); PHOSPHORUS 4.5 MG/DL (2.3-4.5); POTASSIUM 3.7 MMOL/L (3.5-5.1); SODIUM 141 MMOL/L (135-145); TOTAL CARBON DIOXIDE 29.2 MMOL/L (24-32); TOTAL PROTEIN 5.4 G/DL (6.4-8.2); eGFR 47 ML/MIN
[2023-01-19 03:23] LABS: PLATELET ESTIMATE NORMAL; TOTAL CELLS COUNTED 100
[2023-01-19 03:24] LABS: ANISOCYTOSIS FEW; HYPOCHROMASIA 1+; SCHISTOCYTES FEW
[2023-01-19 03:37] LABS: ABG BASE EXCESS 3.7 mmol/L (-2.0-2.0); ABG HCO3 29.6 mmol/L (22.0-26.0); ABG PCO2 (T) 51.4 mmHg (35.0-48.0); ABG PO2 (T) 85.3 mmHg (75.0-100.0); ALLEN'S TEST Modified; FCOHb 0.3 % (0.0-3.9); FMetHb 0.5 % (0.0-1.5); FO2Hb 95.2 % (94-97); PATIENT TEMPERATURE 36.9; PEEP 5 cm H2O; RESPIRATORY RATE 20 b/min; TIDAL VOLUME 450 mL
[2023-01-19] MEDS: mineral oil/petrolatum ophthal oint EACHEYE SCH ×3 (04:00→12:00)
[2023-01-19] MEDS: propofol 1000mg/100ml bottle 100 ML IV SCH (04:46)
[2023-01-19] MEDS: normal saline 1000ml 1,000 ML IV SCH (04:48)
[2023-01-19] MEDS: NORepinephrine 8mg/ 250ml NS 250 ML IV SCH (04:48)
--- NOTE | 2023-01-19 06:15 | NUR ---
Patient in room CICU 2009. I have received report from Gia CANTRELL and had the opportunity to ask questions and assume patient care.
[2023-01-19] MEDS: vitamin B comp w/Vit. C tab 1 TAB TABLET OGT SCH (07:21)
[2023-01-19] MEDS: docusate sodium 100mg/10ml UD cup OGT SCH (07:21)
[2023-01-19] MEDS: levetiracetam inj 500 MG in normal saline 100ml IV soln 95 ML IV SCH (07:21)
[2023-01-19] MEDS: MULTIVIT-MIN/FERROUS GLUCONATE 9 MG/15 ML LIQUID OGT SCH (07:21)
[2023-01-19] MEDS: thiamine 100mg tablet OGT SCH (07:21)
[2023-01-19] MEDS: heparin, porcine 5000 units/ml vial SQ SCH (07:22)
[2023-01-19] MEDS: folic acid 1mg tablet OGT SCH (07:22)
[2023-01-19] MEDS ORDERED: VANCOMYCIN LEVEL IV ONE (07:30)
[2023-01-19] MEDS ORDERED: levoFLOXACIN-Levaquin 750MG/D5 150 ML IV SCH (08:00)
[2023-01-19] MEDS ORDERED: CefTRIAXone/D5W-Rocephin 1gm 50 ML IV SCH (08:00)
[2023-01-19] MEDS ORDERED: lansoprazole 15mg solutab OGT SCH (08:00)
[2023-01-19] MEDS: albumin (human) 25% 100ml IV 100 ML IV SCH (08:02)
[2023-01-19] MEDS: DOBUTamine-DoBUTrex 500mg/D5W 250 ML IV SCH (08:31)
[2023-01-19] MEDS: dextrose 50%-water 250 ML IV SCH (08:31)
--- NOTE | 2023-01-19 11:00 | NUR ---
Patients family at bedside, Dr. Ruvalcaba discussed end of life with family and family decided to go comfort care. Sister Salina and son Curtis at bedside. Pt will be extubated to comfort care.
[2023-01-19] MEDS: morphine 10mg/ml inj. IV PRN ×3 (12:01→13:19)
--- NOTE | 2023-01-19 14:25 | NUR ---
RN IS TO DOCUMENT YES TO ALL APPLICABLE AREAS Pronouncement of : 1. Time Physician Notified:1426 2. Date of : 01/19/23 3. Time of : 1426 4. DNR/Withdraw life support documented:Y 5. Monitor strip has been placed on chart:Y 6. Assessment process is of one-minute duration and includes following criteria:Y a) Patient is unresponsive to all stimuli: Y b) Pupils fixed and non-reactive:Y c) Auscultation of precordium reveals absence of heart tones:Y d) Auscultation of lungs reveals absence of breath sounds:Y e) Absence of blood pressure / all vital signs:Y f) QRS complexes are not present on monitor / EKG strip:Y g) Pacer spikes without capture:N/A 4. Comments:Sister Salina at bedside and was aware
--- NOTE | 2023-01-19 14:40 | NUR ---
Donor network called and stated okay to release to mortuary, pt is tissue candidate. Reference # [id number]. Patient's sister Salina took home patients dentures and jewelry-necklace and rings.
--- NOTE | 2023-01-19 15:06 | NUR ---
[facility] called to slate picker patient, stated ETA 1hr. Awaiting slate picker.
--- NOTE | 2023-01-19 16:51 | NUR ---
Patient picked up by [facility].
== END 2023-01-19 14:29 | DRG 130 ==
LOC: ER 11:56 → ED HOLD 13:26 → CICU 2S 14:12
PROVIDERS: ADMIT Internal Medicine Critical Care Medicine; ATTEND Family Medicine
PROC: 5A1955Z Respiratory Ventilation, Greater than 96 Consecutive Hours (ICD-10-PCS; principal; 2023-01-14)
PROC: 5A1223Z Performance of Cardiac Pacing, Continuous (ICD-10-PCS; 2023-01-14)
PROC: 0BH17EZ Insertion of Endotracheal Airway into Trachea, Via Natural or Artificial Opening (ICD-10-PCS; 2023-01-14)
PROC: 02H63JZ Insertion of Pacemaker Lead into Right Atrium, Percutaneous Approach (ICD-10-PCS; 2023-01-14)
PROC: 02HK3JZ Insertion of Pacemaker Lead into Right Ventricle, Percutaneous Approach (ICD-10-PCS; 2023-01-14)
PROC: 5A2204Z Restoration of Cardiac Rhythm, Single (ICD-10-PCS; 2023-01-14)
PROC: 03HY32Z Insertion of Monitoring Device into Upper Artery, Percutaneous Approach (ICD-10-PCS; 2023-01-14)
PROC: B3201ZZ Computerized Tomography (CT Scan) of Thoracic Aorta using Low Osmolar Contrast (ICD-10-PCS; 2023-01-14)
PROC: B32T1ZZ Computerized Tomography (CT Scan) of Left Pulmonary Artery using Low Osmolar Contrast (ICD-10-PCS; 2023-01-14)
PROC: B32S1ZZ Computerized Tomography (CT Scan) of Right Pulmonary Artery using Low Osmolar Contrast (ICD-10-PCS; 2023-01-14)
PROC: 4A00X4Z Measurement of Central Nervous Electrical Activity, External Approach (ICD-10-PCS; 2023-01-16)
DX: J96.01 Acute respiratory failure with hypoxia (principal); I46.9 Cardiac arrest, cause unspecified; I21.4 Non-ST elevation (NSTEMI) myocardial infarction; I50.21 Acute systolic (congestive) heart failure; I44.2 Atrioventricular block, complete; E87.20 Acidosis, unspecified; E87.0 Hyperosmolality and hypernatremia; D63.8 Anemia in other chronic diseases classified elsewhere; J18.9 Pneumonia, unspecified organism; I13.0 Hypertensive heart and chronic kidney disease with heart failure and stage 1 through stage 4 chronic kidney disease, or unspecified chronic kidney disease; Z20.822 Contact with and (suspected) exposure to COVID-19; N18.9 Chronic kidney disease, unspecified; B96.1 Klebsiella pneumoniae [K. pneumoniae] as the cause of diseases classified elsewhere; G93.1 Anoxic brain damage, not elsewhere classified; G25.3 Myoclonus; E16.2 Hypoglycemia, unspecified; I42.0 Dilated cardiomyopathy; E87.6 Hypokalemia; I45.89 Other specified conduction disorders; N17.9 Acute kidney failure, unspecified; R00.1 Bradycardia, unspecified; Z63.8 Other specified problems related to primary support group; Z87.891 Personal history of nicotine dependence; Z79.899 Other long term (current) drug therapy
CPT/HCPCS: 33210; 36415; 36600; 70450; 71045; 71275; 80048; 80053; 80202; 80305; 80320; 81001; 82550; 82803; 82948; 83036; 83605; 83735; 84100; 84132; 84134; 84145; 84478; 84484; 85007; 85018; 85025; 85610; 85730; 87040; 87070; 87077; 87081; 87088; 87186; 87635; 92953; 93308; 94002; 94003; 94760; 94799; 95816; 99152; 99153; 99285; A6212; A6213; A6258; A9900; C1751; C1756; C9113; G0378; J0131; J0696; J1250; J1265; J1644; J1815; J1940; J1953; J1956; J2175; J2274; J2543; J2704; J3010; J3370; J3475; J3480; J3490; J7030; J7040; J7050; J7120; P9047; Q9967